=== PATIENT | male | born 1970 | race African-American/Black ===

== ENCOUNTER 2020-10-25 11:26 | Inpatient (IN) | payer OTHER ==
[2020-10-25 16:36] VITALS: BMI 21.3
[2020-10-25] MEDS ORDERED: MENTHOL/PHENOL 1 EACH UD MM PRN (16:53)
[2020-10-25] MEDS ORDERED: MAGNESIUM CITRATE 300 ML BOTTLE PO PRN (16:53)
[2020-10-25] MEDS ORDERED: IBUPROFEN 400 MG TABLET (FP) PO PRN (16:53)
[2020-10-25] MEDS ORDERED: LOPERAMIDE HCL 2 MG CAPSULE PO PRN (16:53)
[2020-10-25] MEDS ORDERED: MAGNESIUM HYDROX 2400MG/30ML ORAL SUSPENSION 30 ML CUP PO PRN (16:53)
[2020-10-25] MEDS ORDERED: NICOTINE POLACRILEX 2 MG GUM BC PRN (16:53)
[2020-10-25] MEDS ORDERED: MAG HYDROX/AL HYDROX/SIMETH 30 ML UNIT-DOSE CUP PO PRN (16:53)
[2020-10-25] MEDS ORDERED: P-EPHED 60MG/TRIPROLIDI 2.5MG TABLET PO PRN (16:53)
[2020-10-25] MEDS ORDERED: guaiFENesin 200 MG/10 ML 10 ML UNIT-DOSE CUPS PO PRN (16:53)
[2020-10-25] MEDS ORDERED: TUBERCULIN PPD 5 TU/0.1ML VIAL ID ONE (17:59)
[2020-10-25] MEDS: hydrOXYzine PAMOATE 25 MG CAPSULE (FP) PO SCH ×2 (18:35→21:49)
[2020-10-25] MEDS: THIAMINE HCL 100 MG TABLET (FP) PO SCH (21:49)
[2020-10-25] MEDS: MELATONIN 5 MG TABLETS PO SCH (21:49)
[2020-10-25] MEDS: APIXABAN 5 MG TABLET PO SCH (21:49)
[2020-10-25] MEDS: ATORVASTATIN CA 20 MG TABLET (FP) PO SCH (21:49)
[2020-10-26] MEDS: ACETAMINOPHEN 325 MG TABLET (FP) PO PRN ×2 (07:01→13:19)
[2020-10-26] MEDS: hydrOXYzine PAMOATE 25 MG CAPSULE (FP) PO SCH ×5 (07:02→21:09)
[2020-10-26] MEDS: PRENATAL VITAMINS W/ FOLIC ACID TABLET (FP) PO SCH (09:42)
[2020-10-26] MEDS: ASPIRIN 81 MG CHEWABLE TABLETS PO SCH (09:43)
[2020-10-26] MEDS: NICOTINE 7 MG/24 HOURS TOPICAL PATCH TD SCH (09:43)
[2020-10-26] MEDS: amLODIPine BESYLATE 5 MG TABLET (FP) PO SCH (09:43)
[2020-10-26] MEDS: APIXABAN 5 MG TABLET PO SCH ×2 (09:43→21:09)
[2020-10-26] MEDS ORDERED: FLU VACCINE (FLULAVAL) PF 60 MCG/0.5 ML SYRINGE 2020-2021 IM ONE (12:00)
[2020-10-26 12:36] LABS: POTASSIUM 3.7 mmol/L (3.5-5.1)
[2020-10-26 12:41] LABS: HEMATOCRIT 39.9 % (35.4-49); HEMOGLOBIN 13.2 GM/dL (11.7-16.9); MCH 29.8 pg (25.7-33.7); MCHC 33.2 g/dl (32.0-35.9); MEAN CELL VOLUME 89.7 fl (80-96); MEAN PLT VOLUME 10.5 fl (7.5-11.1); PLATELET COUNT 128 K/MM3 (134-434); RBC 4.45 M/mm3 (4.00-5.60); RDW 14.4 % (11.9-15.9); WHITE BLOOD COUNT 6.2 K/mm3 (4.0-10.0)
[2020-10-26 12:42] LABS: ALBUMIN 3.1 g/dl (3.4-5.0)
[2020-10-26 12:43] LABS: BLOOD UREA NITROGEN 11.7 mg/dL (7-18)
[2020-10-26 12:46] LABS: CREATININE 1.3 mg/dL (0.55-1.3)
[2020-10-26 12:47] LABS: BILIRUBIN,TOTAL 0.8 mg/dL (0.2-1); TOT PROT 6.7 g/dl (6.4-8.2)
[2020-10-26] MEDS: MELATONIN 5 MG TABLETS PO SCH (21:09)
[2020-10-26] MEDS: ATORVASTATIN CA 20 MG TABLET (FP) PO SCH (21:09)
[2020-10-26] MEDS: THIAMINE HCL 100 MG TABLET (FP) PO SCH (21:09)
[2020-10-27] MEDS: ACETAMINOPHEN 325 MG TABLET (FP) PO PRN (06:46)
[2020-10-27] MEDS: hydrOXYzine PAMOATE 25 MG CAPSULE (FP) PO SCH ×5 (06:47→21:10)
[2020-10-27] MEDS: PRENATAL VITAMINS W/ FOLIC ACID TABLET (FP) PO SCH (10:28)
[2020-10-27] MEDS: APIXABAN 5 MG TABLET PO SCH ×2 (10:29→21:12)
[2020-10-27] MEDS: amLODIPine BESYLATE 5 MG TABLET (FP) PO SCH (10:29)
[2020-10-27] MEDS: ASPIRIN 81 MG CHEWABLE TABLETS PO SCH (10:29)
[2020-10-27] MEDS: NICOTINE 7 MG/24 HOURS TOPICAL PATCH TD SCH (10:29)
[2020-10-27 16:41] LABS: URINE APPEARANCE CLEAR; URINE BILIRUBIN NEGATIVE (NEGATIVE); URINE COLOR YELLOW; URINE GLUCOSE (UA) NEGATIVE (NEGATIVE); URINE KETONE NEGATIVE (NEGATIVE); URINE LEUK ESTERASE NEGATIVE (NEGATIVE); URINE NITRITE NEGATIVE (NEGATIVE); URINE PROTEIN NEGATIVE (NEGATIVE); URINE UROBILINOGEN 0.2 mg/dL (0.2-1.0)
[2020-10-27] MEDS: THIAMINE HCL 100 MG TABLET (FP) PO SCH (21:10)
[2020-10-27] MEDS: MELATONIN 5 MG TABLETS PO SCH (21:10)
[2020-10-27] MEDS: ATORVASTATIN CA 20 MG TABLET (FP) PO SCH (21:10)
[2020-10-28] MEDS ORDERED: MASKS NR ONE (06:15)
[2020-10-28] MEDS: ACETAMINOPHEN 325 MG TABLET (FP) PO PRN ×2 (06:16→10:28)
[2020-10-28] MEDS: hydrOXYzine PAMOATE 25 MG CAPSULE (FP) PO SCH ×5 (06:16→22:20)
[2020-10-28 09:15] VITALS: TEMP 97.7
[2020-10-28] MEDS: APIXABAN 5 MG TABLET PO SCH ×2 (10:26→22:21)
[2020-10-28] MEDS: ASPIRIN 81 MG CHEWABLE TABLETS PO SCH (10:26)
[2020-10-28] MEDS: PRENATAL VITAMINS W/ FOLIC ACID TABLET (FP) PO SCH (10:26)
[2020-10-28] MEDS: amLODIPine BESYLATE 5 MG TABLET (FP) PO SCH (10:26)
[2020-10-28] MEDS: NICOTINE 7 MG/24 HOURS TOPICAL PATCH TD SCH (10:27)
[2020-10-28 21:01] VITALS: BP 143/85; PULSE 67
[2020-10-28] MEDS ORDERED: NITROGLYCERIN SUBLINGUAL 1/150 0.4 MG TAB SL ONE (21:16)
[2020-10-28] MEDS ORDERED: NITROGLYCERIN SUBLINGUAL 1/150 0.4 MG TAB ONE (21:24)
[2020-10-28] MEDS: MELATONIN 5 MG TABLETS PO SCH (22:21)
[2020-10-28] MEDS: THIAMINE HCL 100 MG TABLET (FP) PO SCH (22:21)
[2020-10-28] MEDS: ATORVASTATIN CA 20 MG TABLET (FP) PO SCH (22:21)
== END 2020-10-28 21:55 | disposition short-term general hospital (02) | DRG 772 ==
LOC: YASAS 11:26 → Y5N 16:42
PROVIDERS: ADMIT Allergy & Immunology; ATTEND Allergy & Immunology
PROC: HZ42ZZZ Group Counseling for Substance Abuse Treatment, Cognitive-Behavioral (ICD-10-PCS; principal; 2020-10-25)
DX: F10.20 Alcohol dependence, uncomplicated (principal); F14.20 Cocaine dependence, uncomplicated; F43.10 Post-traumatic stress disorder, unspecified; I10 Essential (primary) hypertension; E78.5 Hyperlipidemia, unspecified; M54.5 Low back pain; G89.29 Other chronic pain; R07.9 Chest pain, unspecified; Z86.73 Personal history of transient ischemic attack (TIA), and cerebral infarction without residual deficits; Z86.718 Personal history of other venous thrombosis and embolism; Z79.01 Long term (current) use of anticoagulants; Z79.82 Long term (current) use of aspirin
CPT/HCPCS: 36415; 80053; 81003; 85027; 86780; 93005; 93010; C9803; G0008; Q2036; U0003

== ENCOUNTER 2020-10-28 22:12 | Inpatient (IN) | payer OTHER ==
[2020-10-28] MEDS ORDERED: ACETAMINOPHEN 1000 MG/100 ML VIAL (NON FORMULARY) IVPB ONE (22:54)
[2020-10-28] MEDS ORDERED: SODIUM CHLORIDE 0.9% 500 ML INFUS.BAG IV ONE (22:56)
[2020-10-28] MEDS ORDERED: ACETAMINOPHEN INJECTION 100 ML IVPB ONE (23:00)
[2020-10-28 23:25] LABS: EOS % 2.9 % (0-4.5); HEMATOCRIT 41.9 % (35.4-49); HEMOGLOBIN 13.9 GM/dL (11.7-16.9); LYMPH % 26.9 % (8-40); MCH 29.6 pg (25.7-33.7); MCHC 33.1 g/dl (32.0-35.9); MEAN CELL VOLUME 89.2 fl (80-96); MEAN PLT VOLUME 9.5 fl (7.5-11.1); MONO % 25.7 % (3.8-10.2); NEUT % 43.5 % (42.8-82.8); PLATELET COUNT 108 K/MM3 (134-434); RDW 14.2 % (11.9-15.9); WHITE BLOOD COUNT 5.8 K/mm3 (4.0-10.0)
[2020-10-29 00:09] LABS: POTASSIUM 3.9 mmol/L (3.5-5.1)
[2020-10-29 00:11] LABS: CALCIUM 7.6 mg/dL (8.5-10.1)
[2020-10-29 00:12] LABS: ALBUMIN 2.7 g/dl (3.4-5.0); BLOOD UREA NITROGEN 15.3 mg/dL (7-18)
[2020-10-29 00:15] LABS: BILIRUBIN,TOTAL 0.2 mg/dL (0.2-1)
[2020-10-29 00:17] LABS: TOT PROT 6.5 g/dl (6.4-8.2)
[2020-10-29] MEDS ORDERED: ACETAMINOPHEN 325 MG TABLET (FP) PO PRN (01:43)
[2020-10-29 02:19] LABS: SMUDGE CELLS 10
[2020-10-29 02:20] LABS: ANISOCYTOSIS 1+; MACROCYTOSIS 1+; PLATELET ESTIMATE DECREASED
[2020-10-29] MEDS ORDERED: LORATADINE 10 MG TABLET PO ONE (03:52)
[2020-10-29] MEDS ORDERED: FOLIC ACID INJECTION - 1 MG, THIAMINE HCL 100 MG, MULTIVIT INJECTION ADULT 10 ML in SOD... IVPB ONE (04:00)
[2020-10-29 04:43] VITALS: BMI 28.2
[2020-10-29] MEDS ORDERED: PNEUMOC 13-VAL CONJ-DIP CRM/PF 0.5 ML DISP.SYRIN IM ONE (04:43)
[2020-10-29] MEDS ORDERED: PNEUMOCOCCAL 23 VACCINE 0.5 ML VIAL IM ONE (05:30)
[2020-10-29 07:46] LABS: BASO % 1.3 % (0-2.0); HEMATOCRIT 39.8 % (35.4-49); HEMOGLOBIN 13.3 GM/dL (11.7-16.9); LYMPH % 26.5 % (8-40); MCH 29.6 pg (25.7-33.7); MCHC 33.5 g/dl (32.0-35.9); MEAN CELL VOLUME 88.2 fl (80-96); MEAN PLT VOLUME 10.1 fl (7.5-11.1); MONO % 26.9 % (3.8-10.2); NEUT % 41.3 % (42.8-82.8); PLATELET COUNT 110 K/MM3 (134-434); RBC 4.51 M/mm3 (4.00-5.60); WHITE BLOOD COUNT 5.3 K/mm3 (4.0-10.0)
[2020-10-29 08:09] LABS: POTASSIUM 4.1 mmol/L (3.5-5.1)
[2020-10-29 08:23] LABS: ALBUMIN 2.8 g/dl (3.4-5.0)
[2020-10-29 08:24] LABS: BLOOD UREA NITROGEN 11.3 mg/dL (7-18); MAGNESIUM 1.9 mg/dL (1.8-2.4)
[2020-10-29 08:28] LABS: PHOSPHOROUS 2.9 mg/dL (2.5-4.9)
[2020-10-29 08:29] LABS: BILIRUBIN,TOTAL 0.4 mg/dL (0.2-1); TOT PROT 6.6 g/dl (6.4-8.2)
[2020-10-29] MEDS: MULTIVITAMINS (DAILY MVI) TABLET (FP) PO SCH (09:35)
[2020-10-29] MEDS: NICOTINE 14 MG/24 HOURS TOPICAL PATCH TD SCH ×2 (09:35→09:44)
[2020-10-29] MEDS: THIAMINE HCL 100 MG TABLET (FP) PO SCH (09:35)
[2020-10-29] MEDS: APIXABAN 5 MG TABLET PO SCH ×2 (09:35→21:56)
[2020-10-29] MEDS: FOLIC ACID 1 MG TABLET (FP) PO SCH (09:35)
[2020-10-29] MEDS ORDERED: HYDROCHLOROTHIAZIDE 12.5 MG CAPSULE (FP) PO SCH (10:00)
[2020-10-29 10:50] LABS: ANISOCYTOSIS 0; MACROCYTOSIS 0; PLATELET ESTIMATE DECREASED
[2020-10-29] MEDS: amLODIPine BESYLATE 2.5 MG TABLET (FP) PO SCH (13:00)
[2020-10-29] MEDS ORDERED: LORazepam 1 MG TABLET PO PRN (17:50)
[2020-10-29] MEDS: LISINOPRIL 20 MG TABLET PO SCH (21:56)
[2020-10-29] MEDS: ATORVASTATIN CA 80 MG TABLET (FP) PO SCH (21:56)
[2020-10-30 08:03] LABS: EOS % 2.5 % (0-4.5); HEMATOCRIT 40.5 % (35.4-49); HEMOGLOBIN 13.4 GM/dL (11.7-16.9); LYMPH % 25.6 % (8-40); MCH 29.2 pg (25.7-33.7); MCHC 33.1 g/dl (32.0-35.9); MEAN CELL VOLUME 88.2 fl (80-96); MONO % 22.9 % (3.8-10.2); PLATELET COUNT 113 K/MM3 (134-434); RBC 4.59 M/mm3 (4.00-5.60); RDW 13.7 % (11.9-15.9); WHITE BLOOD COUNT 6.7 K/mm3 (4.0-10.0)
[2020-10-30 08:25] LABS: POTASSIUM 3.6 mmol/L (3.5-5.1)
[2020-10-30 08:33] LABS: ALBUMIN 2.9 g/dl (3.4-5.0); BILIRUBIN,TOTAL 0.3 mg/dL (0.2-1); BLOOD UREA NITROGEN 12.2 mg/dL (7-18); MAGNESIUM 1.7 mg/dL (1.8-2.4)
[2020-10-30] MEDS: APIXABAN 5 MG TABLET PO SCH ×2 (09:32→21:39)
[2020-10-30] MEDS: FOLIC ACID 1 MG TABLET (FP) PO SCH (09:33)
[2020-10-30] MEDS: MULTIVITAMINS (DAILY MVI) TABLET (FP) PO SCH (09:33)
[2020-10-30] MEDS: NICOTINE 14 MG/24 HOURS TOPICAL PATCH TD SCH (09:35)
[2020-10-30] MEDS: THIAMINE HCL 100 MG TABLET (FP) PO SCH (09:35)
[2020-10-30] MEDS: amLODIPine BESYLATE 2.5 MG TABLET (FP) PO SCH (09:40)
[2020-10-30] MEDS ORDERED: ASPIRIN 81 MG CHEWABLE TABLETS PO SCH (10:00)
[2020-10-30 10:33] LABS: PLATELET ESTIMATE NORMAL
[2020-10-30] MEDS ORDERED: MAGNESIUM OXIDE 400 MG TABLET (FP) PO ONE (15:37)
[2020-10-30] MEDS: ATORVASTATIN CA 80 MG TABLET (FP) PO SCH (21:37)
[2020-10-30] MEDS: LISINOPRIL 20 MG TABLET PO SCH (21:37)
[2020-10-31 07:34] LABS: EOS % 5.1 % (0-4.5); HEMATOCRIT 39.7 % (35.4-49); HEMOGLOBIN 13.2 GM/dL (11.7-16.9); LYMPH % 37.2 % (8-40); MCH 29.5 pg (25.7-33.7); MCHC 33.4 g/dl (32.0-35.9); MEAN CELL VOLUME 88.3 fl (80-96); MEAN PLT VOLUME 9.7 fl (7.5-11.1); MONO % 25.3 % (3.8-10.2); NEUT % 31.4 % (42.8-82.8); PLATELET COUNT 125 K/MM3 (134-434); RBC 4.49 M/mm3 (4.00-5.60); RDW 13.6 % (11.9-15.9); WHITE BLOOD COUNT 5.9 K/mm3 (4.0-10.0)
[2020-10-31 07:41] LABS: POTASSIUM 3.8 mmol/L (3.5-5.1)
[2020-10-31 07:42] LABS: CALCIUM 8.1 mg/dL (8.5-10.1)
[2020-10-31 07:44] LABS: ALBUMIN 2.7 g/dl (3.4-5.0); BLOOD UREA NITROGEN 14.6 mg/dL (7-18); MAGNESIUM 1.9 mg/dL (1.8-2.4)
[2020-10-31 07:47] LABS: CREATININE 1.1 mg/dL (0.55-1.3)
[2020-10-31 07:48] LABS: BILIRUBIN,TOTAL 0.3 mg/dL (0.2-1); TOT PROT 6.7 g/dl (6.4-8.2)
[2020-10-31] MEDS: MULTIVITAMINS (DAILY MVI) TABLET (FP) PO SCH (09:01)
[2020-10-31] MEDS: FOLIC ACID 1 MG TABLET (FP) PO SCH (09:02)
[2020-10-31] MEDS: THIAMINE HCL 100 MG TABLET (FP) PO SCH (09:02)
[2020-10-31] MEDS: APIXABAN 5 MG TABLET PO SCH (09:02)
[2020-10-31] MEDS: amLODIPine BESYLATE 2.5 MG TABLET (FP) PO SCH (09:02)
[2020-10-31 09:57] LABS: ANISOCYTOSIS 0; MACROCYTOSIS 0; PLATELET ESTIMATE DECREASED
[2020-10-31] MEDS: NICOTINE 14 MG/24 HOURS TOPICAL PATCH TD SCH (10:00)
[2020-10-31 15:29] VITALS: BP 121/69; PULSE 55; TEMP 98
[2020-11-01] MEDS ORDERED: LORazepam 0.5 MG TABLET PO PRN
== END 2020-10-31 16:27 | disposition home or self-care (01) | DRG 774 ==
LOC: JER 22:12 → UNDOADMIN 10-29 00:38 → OBSVTOIN 10-29 00:38 → JERBED 10-29 00:38 → INTOOBSV 10-29 00:38 → J4W 10-29 04:05 → JERBED 10-29 04:05 → J4W 10-30 16:37
PROVIDERS: ADMIT Internal Medicine; ATTEND Nurse Practitioner Family
PROC: HZ2ZZZZ Detoxification Services for Substance Abuse Treatment (ICD-10-PCS; 2020-10-28)
PROC: XW13325 Transfusion of Convalescent Plasma (Nonautologous) into Peripheral Vein, Percutaneous Approach, New Technology Group 5 (ICD-10-PCS; principal; 2020-10-29)
DX: F14.288 Cocaine dependence with other cocaine-induced disorder (principal); I10 Essential (primary) hypertension; F10.239 Alcohol dependence with withdrawal, unspecified; F14.20 Cocaine dependence, uncomplicated; I69.354 Hemiplegia and hemiparesis following cerebral infarction affecting left non-dominant side; F43.10 Post-traumatic stress disorder, unspecified; I25.118 Atherosclerotic heart disease of native coronary artery with other forms of angina pectoris; I24.8 Other forms of acute ischemic heart disease; R51.9 Headache, unspecified; F17.210 Nicotine dependence, cigarettes, uncomplicated; M54.5 Low back pain; R07.89 Other chest pain; U07.1 COVID-19; Z86.718 Personal history of other venous thrombosis and embolism; Z91.14 Patient's other noncompliance with medication regimen; Z59.0 Homelessness
CPT/HCPCS: 36415; 36430; 70450-TC; 71045-TC-FY; 80053; 80061; 82728; 83615; 83721; 83735; 84100; 84484; 85025; 85379; 86140; 86850; 86900; 86901; 93005; 93010; 93306-TC; 99285-25; J0131; P9017

== ENCOUNTER 2021-06-28 21:20 | Inpatient (IN) | payer OTHER ==
[2021-06-29] MEDS ORDERED: MAGNESIUM CITRATE 300 ML BOTTLE PO PRN (03:20)
[2021-06-29] MEDS ORDERED: P-EPHED 60MG/TRIPROLIDI 2.5MG TABLET PO PRN (03:20)
[2021-06-29] MEDS ORDERED: NALOXONE HCL 0.4 MG/ML VIAL IM PRN (03:20)
[2021-06-29] MEDS ORDERED: MAG HYDROX/AL HYDROX/SIMETH 30 ML UNIT-DOSE CUP PO PRN (03:20)
[2021-06-29] MEDS ORDERED: MAGNESIUM HYDROX 2400MG/30ML ORAL SUSPENSION 30 ML CUP PO PRN (03:20)
[2021-06-29] MEDS ORDERED: guaiFENesin 200 MG/10 ML 10 ML UNIT-DOSE CUPS PO PRN (03:20)
[2021-06-29] MEDS ORDERED: NALOXONE (NARCAN) HCL 4 MG/0.1 ML SPRAY NS PRN (03:20)
[2021-06-29] MEDS ORDERED: LOPERAMIDE HCL 2 MG CAPSULE PO PRN (03:20)
[2021-06-29] MEDS ORDERED: IBUPROFEN 400 MG TABLET (FP) PO PRN ×2 (03:20→18:52)
[2021-06-29] MEDS: AMOX TR/POT CLAV 875MG/125MG TABLETS (FP) PO SCH ×2 (07:45→17:37)
[2021-06-29] MEDS: PRENATAL VITAMINS W/ FOLIC ACID TABLET (FP) PO SCH (09:47)
[2021-06-29] MEDS: NICOTINE 14 MG/24 HOURS TOPICAL PATCH TD SCH (09:47)
[2021-06-29] MEDS ORDERED: BACITRACIN 15 GM TUBE TOPICAL OINTMENT TP SCH (10:00)
[2021-06-29 14:32] LABS: HEMATOCRIT 38.8 % (35.4-49); HEMOGLOBIN 13.1 GM/dL (11.7-16.9); MCH 29.5 pg (25.7-33.7); MCHC 33.7 g/dl (32.0-35.9); MEAN CELL VOLUME 87.6 fl (80-96); MEAN PLT VOLUME 8.6 fl (7.5-11.1); PLATELET COUNT 174 10^3/uL (134-434); RBC 4.43 M/mm3 (4.00-5.60); RDW 14.9 % (11.9-15.9); WHITE BLOOD COUNT 8.4 K/mm3 (4.0-10.0)
[2021-06-29] MEDS ORDERED: PT OWN MED DRAWER 7, Y5N ONE (16:48)
[2021-06-29] MEDS ORDERED: BACITRACIN 0.9 GM PACKET ONE (19:09)
[2021-06-29] MEDS: hydrOXYzine PAMOATE 25 MG CAPSULE (FP) PO PRN (20:51)
[2021-06-29] MEDS: METHOCARBAMOL 500 MG TABLET PO PRN (20:51)
[2021-06-29] MEDS: THIAMINE HCL 100 MG TABLET (FP) PO SCH (21:41)
[2021-06-29] MEDS: MELATONIN 5 MG TABLETS PO SCH (21:41)
[2021-06-29 23:05] LABS: BLOOD UREA NITROGEN 17.2 mg/dL (7-18)
[2021-06-29 23:06] LABS: BILIRUBIN,TOTAL 0.2 mg/dL (0.2-1); CALCIUM 8.5 mg/dL (8.5-10.1); CREATININE 1.3 mg/dL (0.55-1.3)
[2021-06-30 01:19] LABS: URINE APPEARANCE CLEAR; URINE COLOR YELLOW
[2021-06-30 01:20] LABS: URINE BILIRUBIN NEGATIVE (NEGATIVE); URINE GLUCOSE (UA) NEGATIVE (NEGATIVE); URINE KETONE NEGATIVE (NEGATIVE)
[2021-06-30 01:21] LABS: URINE LEUK ESTERASE NEGATIVE (NEGATIVE); URINE NITRITE NEGATIVE (NEGATIVE); URINE PROTEIN NEGATIVE (NEGATIVE); URINE UROBILINOGEN 0.2 mg/dL (0.2-1.0)
[2021-06-30] MEDS: ACETAMINOPHEN 325 MG TABLET (FP) PO PRN (06:31)
[2021-06-30] MEDS: AMOX TR/POT CLAV 875MG/125MG TABLETS (FP) PO SCH ×2 (07:05→17:30)
[2021-06-30] MEDS ORDERED: PT OWN MED DRAWER 7, Y5N ONE ×2 (10:38→17:13)
[2021-06-30] MEDS: DIVALPROEX SODIUM 500 MG TABLET E.C. PO SCH ×2 (10:48→21:00)
[2021-06-30] MEDS: ARIPiprazole 10 MG TABLET PO SCH (10:48)
[2021-06-30] MEDS: PRENATAL VITAMINS W/ FOLIC ACID TABLET (FP) PO SCH (10:48)
[2021-06-30] MEDS: NICOTINE 14 MG/24 HOURS TOPICAL PATCH TD SCH (10:49)
[2021-06-30] MEDS: BACITRACIN 0.9 GM PACKET TP SCH (10:49)
[2021-06-30] MEDS: LISINOPRIL 10 MG TABLET PO SCH (11:36)
[2021-06-30] MEDS: METHOCARBAMOL 500 MG TABLET PO PRN ×2 (11:52→21:00)
[2021-06-30 15:48] LABS: SYPHILIS W/ RPR CONF REACTIVE (NONREACTIVE)
[2021-06-30] MEDS: IBUPROFEN 600 MG TABLET (FP) PO PRN (17:30)
[2021-06-30] MEDS: THIAMINE HCL 100 MG TABLET (FP) PO SCH (21:00)
[2021-06-30] MEDS: MELATONIN 5 MG TABLETS PO SCH (21:01)
[2021-06-30] MEDS: MIRTAZAPINE 15 MG TABLET (FP) PO SCH (21:01)
[2021-07-01] MEDS: AMOX TR/POT CLAV 875MG/125MG TABLETS (FP) PO SCH ×3 (07:51→18:04)
[2021-07-01] MEDS: ACETAMINOPHEN 325 MG TABLET (FP) PO PRN (07:51)
[2021-07-01] MEDS ORDERED: cloNIDine HCL 0.1 MG TABLET PO ONE ×2 (08:00→13:15)
[2021-07-01] MEDS ORDERED: PT OWN MED DRAWER 7, Y5N ONE (08:40)
[2021-07-01] MEDS: NICOTINE 14 MG/24 HOURS TOPICAL PATCH TD SCH (10:28)
[2021-07-01] MEDS: METHOCARBAMOL 500 MG TABLET PO PRN ×2 (10:28→13:30)
[2021-07-01] MEDS: DIVALPROEX SODIUM 500 MG TABLET E.C. PO SCH ×2 (10:28→22:12)
[2021-07-01] MEDS: LISINOPRIL 10 MG TABLET PO SCH (10:28)
[2021-07-01] MEDS: BACITRACIN 0.9 GM PACKET TP SCH (10:28)
[2021-07-01] MEDS: PRENATAL VITAMINS W/ FOLIC ACID TABLET (FP) PO SCH (10:28)
[2021-07-01] MEDS: ARIPiprazole 10 MG TABLET PO SCH (10:28)
[2021-07-01] MEDS: LISINOPRIL 20 MG TABLET PO SCH (13:30)
[2021-07-01] MEDS: IBUPROFEN 600 MG TABLET (FP) PO PRN (18:02)
[2021-07-01] MEDS: DOXYCYCLINE HYCLATE 100 MG TABLET PO SCH (18:04)
[2021-07-01] MEDS: MELATONIN 5 MG TABLETS PO SCH (22:12)
[2021-07-01] MEDS: MIRTAZAPINE 15 MG TABLET (FP) PO SCH (22:12)
[2021-07-01] MEDS: THIAMINE HCL 100 MG TABLET (FP) PO SCH (22:12)
[2021-07-02] MEDS: AMOX TR/POT CLAV 875MG/125MG TABLETS (FP) PO SCH ×2 (07:30→16:59)
[2021-07-02] MEDS ORDERED: PT OWN MED DRAWER 7, Y5N ONE ×2 (08:40→16:57)
[2021-07-02] MEDS: BACITRACIN 0.9 GM PACKET TP SCH (09:35)
[2021-07-02] MEDS: DIVALPROEX SODIUM 500 MG TABLET E.C. PO SCH ×2 (09:35→21:50)
[2021-07-02] MEDS: ARIPiprazole 10 MG TABLET PO SCH (09:35)
[2021-07-02] MEDS: DOXYCYCLINE HYCLATE 100 MG TABLET PO SCH ×2 (09:36→16:59)
[2021-07-02] MEDS: LISINOPRIL 20 MG TABLET PO SCH (09:36)
[2021-07-02] MEDS: METHOCARBAMOL 500 MG TABLET PO PRN ×2 (09:36→21:50)
[2021-07-02] MEDS: PRENATAL VITAMINS W/ FOLIC ACID TABLET (FP) PO SCH (10:04)
[2021-07-02] MEDS: NICOTINE 14 MG/24 HOURS TOPICAL PATCH TD SCH (10:04)
[2021-07-02] MEDS: IBUPROFEN 600 MG TABLET (FP) PO PRN (16:59)
[2021-07-02] MEDS: MIRTAZAPINE 15 MG TABLET (FP) PO SCH (21:50)
[2021-07-02] MEDS: THIAMINE HCL 100 MG TABLET (FP) PO SCH (21:50)
[2021-07-02] MEDS: MELATONIN 5 MG TABLETS PO SCH (21:50)
[2021-07-03] MEDS: AMOX TR/POT CLAV 875MG/125MG TABLETS (FP) PO SCH ×2 (06:59→17:33)
[2021-07-03] MEDS ORDERED: ARIPiprazole 5 MG TABLET ONE (08:32)
[2021-07-03] MEDS: DOXYCYCLINE HYCLATE 100 MG TABLET PO SCH ×2 (09:38→17:33)
[2021-07-03] MEDS: DIVALPROEX SODIUM 500 MG TABLET E.C. PO SCH ×2 (09:38→21:23)
[2021-07-03] MEDS: NICOTINE 14 MG/24 HOURS TOPICAL PATCH TD SCH (09:38)
[2021-07-03] MEDS: LISINOPRIL 20 MG TABLET PO SCH (09:38)
[2021-07-03] MEDS: BACITRACIN 0.9 GM PACKET TP SCH (09:38)
[2021-07-03] MEDS: PRENATAL VITAMINS W/ FOLIC ACID TABLET (FP) PO SCH (09:38)
[2021-07-03] MEDS: ARIPiprazole 10 MG TABLET PO SCH (09:39)
[2021-07-03] MEDS: ACETAMINOPHEN 325 MG TABLET (FP) PO PRN (09:40)
[2021-07-03] MEDS ORDERED: PT OWN MED DRAWER 7, Y5N ONE (16:44)
[2021-07-03] MEDS: IBUPROFEN 600 MG TABLET (FP) PO PRN (21:10)
[2021-07-03] MEDS: MIRTAZAPINE 15 MG TABLET (FP) PO SCH (21:23)
[2021-07-03] MEDS: MELATONIN 5 MG TABLETS PO SCH (21:23)
[2021-07-03] MEDS: THIAMINE HCL 100 MG TABLET (FP) PO SCH (21:23)
[2021-07-03] MEDS: hydrOXYzine PAMOATE 25 MG CAPSULE (FP) PO PRN (21:25)
[2021-07-03] MEDS ORDERED: amLODIPine BESYLATE 5 MG TABLET (FP) PO ONE (23:10)
[2021-07-04] MEDS: LISINOPRIL 20 MG TABLET PO SCH (06:26)
[2021-07-04] MEDS ORDERED: PT OWN MED DRAWER 7, Y5N ONE (07:07)
[2021-07-04] MEDS ORDERED: ARIPiprazole 5 MG TABLET ONE (08:39)
[2021-07-04] MEDS: BACITRACIN 0.9 GM PACKET TP SCH (09:30)
[2021-07-04] MEDS: amLODIPine BESYLATE 5 MG TABLET (FP) PO SCH (09:31)
[2021-07-04] MEDS: HYDROCHLOROTHIAZIDE 12.5 MG CAPSULE (FP) PO SCH (09:31)
[2021-07-04] MEDS: DIVALPROEX SODIUM 500 MG TABLET E.C. PO SCH ×2 (09:31→21:15)
[2021-07-04] MEDS: DOXYCYCLINE HYCLATE 100 MG TABLET PO SCH ×2 (09:31→17:48)
[2021-07-04] MEDS: ARIPiprazole 10 MG TABLET PO SCH (09:31)
[2021-07-04] MEDS: PRENATAL VITAMINS W/ FOLIC ACID TABLET (FP) PO SCH (09:31)
[2021-07-04] MEDS: NICOTINE 14 MG/24 HOURS TOPICAL PATCH TD SCH (09:32)
[2021-07-04] MEDS: IBUPROFEN 600 MG TABLET (FP) PO PRN (20:02)
[2021-07-04] MEDS: METHOCARBAMOL 500 MG TABLET PO PRN (21:15)
[2021-07-04] MEDS: THIAMINE HCL 100 MG TABLET (FP) PO SCH (21:15)
[2021-07-04] MEDS: MIRTAZAPINE 15 MG TABLET (FP) PO SCH (21:15)
[2021-07-04] MEDS: MELATONIN 5 MG TABLETS PO SCH (21:16)
[2021-07-05] MEDS: IBUPROFEN 600 MG TABLET (FP) PO PRN (06:49)
[2021-07-05] MEDS: LISINOPRIL 20 MG TABLET PO SCH (06:49)
[2021-07-05] MEDS: ARIPiprazole 10 MG TABLET PO SCH (10:15)
[2021-07-05] MEDS: DIVALPROEX SODIUM 500 MG TABLET E.C. PO SCH ×2 (10:15→21:16)
[2021-07-05] MEDS: HYDROCHLOROTHIAZIDE 12.5 MG CAPSULE (FP) PO SCH (10:15)
[2021-07-05] MEDS: BACITRACIN 0.9 GM PACKET TP SCH ×2 (10:16→21:16)
[2021-07-05] MEDS: DOXYCYCLINE HYCLATE 100 MG TABLET PO SCH ×2 (10:16→18:15)
[2021-07-05] MEDS: amLODIPine BESYLATE 5 MG TABLET (FP) PO SCH (10:16)
[2021-07-05] MEDS: PRENATAL VITAMINS W/ FOLIC ACID TABLET (FP) PO SCH (10:17)
[2021-07-05] MEDS: AMMONIUM LACTATE 12% LOTION 225 GM BOTTLE TP PRN (10:17)
[2021-07-05] MEDS: NICOTINE 14 MG/24 HOURS TOPICAL PATCH TD SCH (10:17)
[2021-07-05] MEDS: NICOTINE 10 MG CARTRIDGE (INHALER) IH PRN (21:12)
[2021-07-05] MEDS: MELATONIN 5 MG TABLETS PO SCH (21:15)
[2021-07-05] MEDS: THIAMINE HCL 100 MG TABLET (FP) PO SCH (21:15)
[2021-07-05] MEDS: MIRTAZAPINE 15 MG TABLET (FP) PO SCH (21:16)
[2021-07-06] MEDS: LISINOPRIL 20 MG TABLET PO SCH (06:32)
[2021-07-06] MEDS: NICOTINE 10 MG CARTRIDGE (INHALER) IH PRN (06:32)
[2021-07-06] MEDS: DIVALPROEX SODIUM 500 MG TABLET E.C. PO SCH ×2 (09:31→21:31)
[2021-07-06] MEDS: BACITRACIN 0.9 GM PACKET TP SCH ×2 (09:31→21:31)
[2021-07-06] MEDS: ARIPiprazole 10 MG TABLET PO SCH (09:31)
[2021-07-06] MEDS: DOXYCYCLINE HYCLATE 100 MG TABLET PO SCH ×2 (09:31→18:10)
[2021-07-06] MEDS: PRENATAL VITAMINS W/ FOLIC ACID TABLET (FP) PO SCH (09:31)
[2021-07-06] MEDS: NICOTINE 14 MG/24 HOURS TOPICAL PATCH TD SCH (09:31)
[2021-07-06] MEDS: HYDROCHLOROTHIAZIDE 12.5 MG CAPSULE (FP) PO SCH (09:31)
[2021-07-06] MEDS: amLODIPine BESYLATE 5 MG TABLET (FP) PO SCH (09:31)
[2021-07-06] MEDS: MELATONIN 5 MG TABLETS PO SCH (21:31)
[2021-07-06] MEDS: THIAMINE HCL 100 MG TABLET (FP) PO SCH (21:31)
[2021-07-06] MEDS: MIRTAZAPINE 15 MG TABLET (FP) PO SCH (21:31)
[2021-07-07] MEDS: LISINOPRIL 20 MG TABLET PO SCH (06:22)
[2021-07-07] MEDS: NICOTINE 10 MG CARTRIDGE (INHALER) IH PRN ×3 (06:46→21:25)
[2021-07-07] MEDS: PRENATAL VITAMINS W/ FOLIC ACID TABLET (FP) PO SCH (09:56)
[2021-07-07] MEDS: HYDROCHLOROTHIAZIDE 12.5 MG CAPSULE (FP) PO SCH (09:56)
[2021-07-07] MEDS: NICOTINE 14 MG/24 HOURS TOPICAL PATCH TD SCH (09:57)
[2021-07-07] MEDS: DOXYCYCLINE HYCLATE 100 MG TABLET PO SCH ×2 (09:57→18:16)
[2021-07-07] MEDS: METHOCARBAMOL 500 MG TABLET PO PRN ×2 (09:57→21:25)
[2021-07-07] MEDS: DIVALPROEX SODIUM 500 MG TABLET E.C. PO SCH ×2 (09:57→21:25)
[2021-07-07] MEDS: amLODIPine BESYLATE 5 MG TABLET (FP) PO SCH (09:57)
[2021-07-07] MEDS: BACITRACIN 0.9 GM PACKET TP SCH ×2 (09:57→21:35)
[2021-07-07] MEDS: ARIPiprazole 10 MG TABLET PO SCH (09:57)
[2021-07-07] MEDS: IBUPROFEN 600 MG TABLET (FP) PO PRN (09:58)
[2021-07-07] MEDS: THIAMINE HCL 100 MG TABLET (FP) PO SCH (21:25)
[2021-07-07] MEDS: MIRTAZAPINE 15 MG TABLET (FP) PO SCH (21:25)
[2021-07-07] MEDS: hydrOXYzine PAMOATE 25 MG CAPSULE (FP) PO PRN (21:26)
[2021-07-07] MEDS: MELATONIN 5 MG TABLETS PO SCH (21:31)
[2021-07-08] MEDS: LISINOPRIL 20 MG TABLET PO SCH (06:27)
[2021-07-08] MEDS: DOXYCYCLINE HYCLATE 100 MG TABLET PO SCH ×2 (10:11→17:42)
[2021-07-08] MEDS: NICOTINE 14 MG/24 HOURS TOPICAL PATCH TD SCH (10:11)
[2021-07-08] MEDS: PRENATAL VITAMINS W/ FOLIC ACID TABLET (FP) PO SCH (10:11)
[2021-07-08] MEDS: HYDROCHLOROTHIAZIDE 12.5 MG CAPSULE (FP) PO SCH (10:11)
[2021-07-08] MEDS: amLODIPine BESYLATE 5 MG TABLET (FP) PO SCH (10:11)
[2021-07-08] MEDS: DIVALPROEX SODIUM 500 MG TABLET E.C. PO SCH ×2 (10:11→21:41)
[2021-07-08] MEDS: BACITRACIN 0.9 GM PACKET TP SCH ×2 (10:12→21:41)
[2021-07-08] MEDS: ARIPiprazole 10 MG TABLET PO SCH (10:12)
[2021-07-08] MEDS: AMMONIUM LACTATE 12% LOTION 225 GM BOTTLE TP PRN (10:13)
[2021-07-08] MEDS: NICOTINE 10 MG CARTRIDGE (INHALER) IH PRN (17:42)
[2021-07-08] MEDS: THIAMINE HCL 100 MG TABLET (FP) PO SCH (21:41)
[2021-07-08] MEDS: MIRTAZAPINE 15 MG TABLET (FP) PO SCH (21:41)
[2021-07-08] MEDS: MELATONIN 5 MG TABLETS PO SCH (21:42)
[2021-07-08] MEDS: METHOCARBAMOL 500 MG TABLET PO PRN (21:43)
[2021-07-09] MEDS: LISINOPRIL 20 MG TABLET PO SCH (07:01)
[2021-07-09 07:33] VITALS: TEMP 98
[2021-07-09] MEDS: ARIPiprazole 10 MG TABLET PO SCH (09:16)
[2021-07-09] MEDS: DOXYCYCLINE HYCLATE 100 MG TABLET PO SCH (09:16)
[2021-07-09] MEDS: PRENATAL VITAMINS W/ FOLIC ACID TABLET (FP) PO SCH (09:16)
[2021-07-09] MEDS: BACITRACIN 0.9 GM PACKET TP SCH (09:16)
[2021-07-09] MEDS: DIVALPROEX SODIUM 500 MG TABLET E.C. PO SCH (09:16)
[2021-07-09] MEDS: amLODIPine BESYLATE 5 MG TABLET (FP) PO SCH (09:17)
[2021-07-09] MEDS: NICOTINE 14 MG/24 HOURS TOPICAL PATCH TD SCH (09:17)
[2021-07-09] MEDS: HYDROCHLOROTHIAZIDE 12.5 MG CAPSULE (FP) PO SCH (09:17)
[2021-07-09 09:52] VITALS: BP 136/97; PULSE 78
== END 2021-07-09 15:25 | disposition home or self-care (01) | DRG 772 ==
LOC: YASAS 21:20 → Y3E 06-29 02:42
PROVIDERS: ADMIT Allergy & Immunology; ATTEND Allergy & Immunology
PROC: HZ42ZZZ Group Counseling for Substance Abuse Treatment, Cognitive-Behavioral (ICD-10-PCS; principal; 2021-06-29)
DX: F14.20 Cocaine dependence, uncomplicated (principal); F12.20 Cannabis dependence, uncomplicated; F17.210 Nicotine dependence, cigarettes, uncomplicated; F31.9 Bipolar disorder, unspecified; F19.282 Other psychoactive substance dependence with psychoactive substance-induced sleep disorder; F19.24 Other psychoactive substance dependence with psychoactive substance-induced mood disorder; F43.10 Post-traumatic stress disorder, unspecified; I25.118 Atherosclerotic heart disease of native coronary artery with other forms of angina pectoris; I10 Essential (primary) hypertension; J44.9 Chronic obstructive pulmonary disease, unspecified; E78.5 Hyperlipidemia, unspecified; A53.9 Syphilis, unspecified; Z86.73 Personal history of transient ischemic attack (TIA), and cerebral infarction without residual deficits; Z98.890 Other specified postprocedural states; Z59.00 Homelessness unspecified; Z56.0 Unemployment, unspecified; Z99.89 Dependence on other enabling machines and devices; S01.81XD Laceration without foreign body of other part of head, subsequent encounter; S82.042D Displaced comminuted fracture of left patella, subsequent encounter for closed fracture with routine healing; S82.091D Other fracture of right patella, subsequent encounter for closed fracture with routine healing; Y08.89XD Assault by other specified means, subsequent encounter
CPT/HCPCS: 36415; 80053; 81003; 85027; 86593; 86780; 86803; C9803; J0735; U0003; U0005

== ENCOUNTER 2021-10-30 18:48 | Inpatient (IN) | payer OTHER ==
[2021-10-30] MEDS ORDERED: NICOTINE POLACRILEX 2 MG GUM BC PRN (20:17)
[2021-10-30] MEDS ORDERED: P-EPHED 60MG/TRIPROLIDI 2.5MG TABLET PO PRN (20:17)
[2021-10-30] MEDS ORDERED: MAGNESIUM HYDROX 2400MG/30ML ORAL SUSPENSION 30 ML CUP PO PRN (20:17)
[2021-10-30] MEDS ORDERED: MAG HYDROX/AL HYDROX/SIMETH 30 ML UNIT-DOSE CUP PO PRN (20:17)
[2021-10-30] MEDS ORDERED: MAGNESIUM CITRATE 300 ML BOTTLE PO PRN (20:17)
[2021-10-30] MEDS ORDERED: guaiFENesin 200 MG/10 ML 10 ML UNIT-DOSE CUPS PO PRN (20:17)
[2021-10-30] MEDS ORDERED: LOPERAMIDE HCL 2 MG CAPSULE PO PRN (20:17)
[2021-10-30] MEDS ORDERED: MELATONIN 5 MG TABLETS PO PRN (20:17)
[2021-10-30] MEDS ORDERED: ACETAMINOPHEN 325 MG TABLET (FP) PO PRN (20:17)
[2021-10-30 21:54] VITALS: BMI 23.7
[2021-10-30] MEDS ORDERED: ATORVASTATIN CA 80 MG TABLET (FP) PO SCH (22:00)
[2021-10-30] MEDS ORDERED: LISINOPRIL 20 MG TABLET PO SCH (22:00)
[2021-10-30] MEDS ORDERED: THIAMINE HCL 100 MG TABLET (FP) PO SCH (22:00)
[2021-10-30] MEDS ORDERED: ONDANSETRON 4 MG TABLET PO ONE (23:35)
[2021-10-31] MEDS: APIXABAN 5 MG TABLET PO SCH ×2 (00:03→09:55)
[2021-10-31] MEDS: DIVALPROEX SODIUM 500 MG TABLET E.C. PO SCH ×2 (00:03→09:53)
[2021-10-31] MEDS: GABAPENTIN 300 MG CAPSULE PO SCH ×3 (00:03→15:22)
[2021-10-31] MEDS: FOLIC ACID 1 MG TABLET (FP) PO SCH ×2 (00:03→09:53)
[2021-10-31 07:24] VITALS: TEMP 98.8
[2021-10-31] MEDS ORDERED: BUPRENORPHINE/NALOXONE 2 MG/0.5 MG FILM PACKET SL SCH (10:00)
[2021-10-31] MEDS ORDERED: PRENATAL VITAMINS W/ FOLIC ACID TABLET (FP) PO SCH (10:00)
[2021-10-31] MEDS ORDERED: DIVALPROEX PO SCH (10:00)
[2021-10-31 10:15] LABS: HEMOGLOBIN 14.6 GM/dL (11.7-16.9); MCH 28.9 pg (25.7-33.7); MCHC 32.5 g/dl (32.0-35.9); MEAN PLT VOLUME 9.1 fl (7.5-11.1); PLATELET COUNT 166 10^3/uL (134-434); RBC 5.05 M/mm3 (4.00-5.60); RDW 14.6 % (11.9-15.9); WHITE BLOOD COUNT 12.4 K/mm3 (4.0-10.0)
[2021-10-31 10:17] LABS: EPI CELLS 8 /uL (0-25.1); HYALINE CASTS 7 /uL (0-3.1); PH,URINE 5.5 (5.0-8.0); URINE APPEARANCE CLEAR; URINE BACTERIA 1 /uL (0-1359); URINE BILIRUBIN NEGATIVE (NEGATIVE); URINE COLOR YELLOW; URINE GLUCOSE (UA) NEGATIVE (NEGATIVE); URINE KETONE TRACE (NEGATIVE); URINE LEUK ESTERASE NEGATIVE (NEGATIVE); URINE NITRITE NEGATIVE (NEGATIVE); URINE PROTEIN 1+ (NEGATIVE); URINE RBC 6 /uL (0-23.9); URINE UROBILINOGEN 0.2 mg/dL (0.2-1.0); URINE WBC 7 /uL (0-25.8)
[2021-10-31 10:18] LABS: CALCIUM 8.8 mg/dL (8.5-10.1)
[2021-10-31 10:19] LABS: ALBUMIN 2.7 g/dl (3.4-5.0); BLOOD UREA NITROGEN 18.3 mg/dL (7-18)
[2021-10-31 10:22] LABS: CREATININE 1.4 mg/dL (0.55-1.3)
[2021-10-31 10:24] LABS: BILIRUBIN,TOTAL 0.2 mg/dL (0.2-1); TOT PROT 5.8 g/dl (6.4-8.2)
[2021-10-31 11:11] VITALS: BP 101/66; PULSE 76
[2021-10-31] MEDS ORDERED: VERAPAMIL HCL 40 MG TABLET PO SCH (14:00)
[2021-10-31] MEDS ORDERED: MIRTAZAPINE 15 MG TABLET (FP) PO SCH (22:00)
== END 2021-10-31 16:30 | disposition left against medical advice (07) | DRG 772 ==
LOC: YASAS 18:48 → Y5N 20:50 → Y3W 10-31 01:56
PROVIDERS: ADMIT Allergy & Immunology; ATTEND Allergy & Immunology
PROC: HZ42ZZZ Group Counseling for Substance Abuse Treatment, Cognitive-Behavioral (ICD-10-PCS; principal; 2021-10-30)
DX: F10.20 Alcohol dependence, uncomplicated (principal); F14.20 Cocaine dependence, uncomplicated; F12.20 Cannabis dependence, uncomplicated; F17.210 Nicotine dependence, cigarettes, uncomplicated; F19.282 Other psychoactive substance dependence with psychoactive substance-induced sleep disorder; F19.280 Other psychoactive substance dependence with psychoactive substance-induced anxiety disorder; F31.9 Bipolar disorder, unspecified; F43.10 Post-traumatic stress disorder, unspecified; G40.909 Epilepsy, unspecified, not intractable, without status epilepticus; I25.10 Atherosclerotic heart disease of native coronary artery without angina pectoris; I10 Essential (primary) hypertension; J43.9 Emphysema, unspecified; Z86.718 Personal history of other venous thrombosis and embolism; Z79.01 Long term (current) use of anticoagulants; I69.834 Monoplegia of upper limb following other cerebrovascular disease affecting left non-dominant side; Z86.19 Personal history of other infectious and parasitic diseases; Z56.0 Unemployment, unspecified; Z59.00 Homelessness unspecified
CPT/HCPCS: 36415; 80053; 81003; 85027; 86593; 86780; 93005; 93010

== ENCOUNTER 2023-03-29 19:29 | Inpatient (IN) | payer OTHER ==
[2023-03-29 20:44] VITALS: BMI 24.4
[2023-03-30] MEDS ORDERED: LOPERAMIDE HCL 2 MG CAPSULE PO PRN (01:22)
[2023-03-30] MEDS ORDERED: BENZONATATE 200 MG CAPSULE PO PRN (01:22)
[2023-03-30] MEDS ORDERED: NALOXONE HCL 0.4 MG/ML VIAL IM PRN (01:22)
[2023-03-30] MEDS ORDERED: AMMONIUM LACTATE 12% LOTION 225 GM BOTTLE TP PRN (01:22)
[2023-03-30] MEDS ORDERED: BENZOCAINE/MENTHOL (CHLORASEPTIC ) LOZENGE MM PRN (01:22)
[2023-03-30] MEDS ORDERED: MAGNESIUM HYDROX 2400MG/30ML ORAL SUSPENSION 30 ML CUP PO PRN (01:22)
[2023-03-30] MEDS ORDERED: NICOTINE 10 MG CARTRIDGE (INHALER) IH PRN (01:22)
[2023-03-30] MEDS ORDERED: IBUPROFEN 400 MG TABLET (FP) PO PRN (01:22)
[2023-03-30] MEDS ORDERED: NALOXONE HCL (KLOXXADO) 8 MG SPRAY NS PRN (01:22)
[2023-03-30] MEDS ORDERED: guaiFENesin 600 MG TABLET.ER (FP) PO PRN (01:22)
[2023-03-30] MEDS ORDERED: COLLOIDAL OATMEAL 1 BAR EACH TP PRN (01:22)
[2023-03-30] MEDS ORDERED: MAG HYDROX/AL HYDROX/SIMETH 30 ML UNIT-DOSE CUP PO PRN (01:22)
[2023-03-30] MEDS ORDERED: POLYETHYLENE GLYCOL (HEALTHYLAX) 3350 17 GM PACKET PO PRN (01:22)
[2023-03-30] MEDS: hydrOXYzine PAMOATE 25 MG CAPSULE (FP) PO PRN (07:08)
[2023-03-30] MEDS ORDERED: LISINOPRIL 20 MG TABLET PO ONE (07:45)
[2023-03-30] MEDS ORDERED: TUBERCULIN PPD 5 TU/0.1ML VIAL ID ONE (07:48)
[2023-03-30] MEDS: HYDROCHLOROTHIAZIDE 12.5 MG CAPSULE (FP) PO SCH (07:49)
[2023-03-30] MEDS: PRENATAL VITAMINS W/ FOLIC ACID TABLET (FP) PO SCH (09:36)
[2023-03-30] MEDS: NICOTINE 14 MG/24 HOURS TOPICAL PATCH TD SCH (09:36)
[2023-03-30 11:26] LABS: HEMATOCRIT 38.1 % (35.4-49); HEMOGLOBIN 12.3 GM/dL (11.7-16.9); MCH 28.7 pg (25.7-33.7); MCHC 32.3 g/dl (32.0-35.9); MEAN CELL VOLUME 88.7 fl (80-96); MEAN PLT VOLUME 10.1 fl (7.5-11.1); PLATELET COUNT 139 10^3/uL (134-434); RBC 4.29 M/mm3 (4.00-5.60); RDW 14.5 % (11.9-15.9); WHITE BLOOD COUNT 5.7 K/mm3 (4.0-10.0)
[2023-03-30 11:30] LABS: URINE APPEARANCE CLEAR; URINE BILIRUBIN NEGATIVE (NEGATIVE); URINE COLOR YELLOW; URINE GLUCOSE (UA) NEGATIVE (NEGATIVE); URINE KETONE NEGATIVE (NEGATIVE); URINE LEUK ESTERASE NEGATIVE (NEGATIVE); URINE NITRITE NEGATIVE (NEGATIVE); URINE PROTEIN NEGATIVE (NEGATIVE); URINE UROBILINOGEN 0.2 mg/dL (0.2-1.0)
[2023-03-30 11:34] LABS: POTASSIUM 3.7 mmol/L (3.5-5.1)
[2023-03-30 11:44] LABS: CALCIUM 8.7 mg/dL (8.5-10.1)
[2023-03-30 11:45] LABS: ALBUMIN 2.9 g/dl (3.4-5.0); BLOOD UREA NITROGEN 20.7 mg/dL (7-18); TOT PROT 6.3 g/dl (6.4-8.2)
[2023-03-30 11:47] LABS: BILIRUBIN,TOTAL 0.4 mg/dL (0.2-1)
[2023-03-30 11:48] LABS: CREATININE 1.3 mg/dL (0.55-1.3)
[2023-03-30] MEDS: THIAMINE HCL 100 MG TABLET (FP) PO SCH (21:06)
[2023-03-30] MEDS: MELATONIN 5 MG TABLETS PO SCH (21:06)
[2023-03-31] MEDS: PRENATAL VITAMINS W/ FOLIC ACID TABLET (FP) PO SCH (09:45)
[2023-03-31] MEDS: NICOTINE POLACRILEX 2 MG GUM BUC PRN (09:45)
[2023-03-31] MEDS: IBUPROFEN 600 MG TABLET (FP) PO PRN (09:47)
[2023-03-31] MEDS: hydrOXYzine PAMOATE 25 MG CAPSULE (FP) PO PRN (09:47)
[2023-03-31] MEDS: HYDROCHLOROTHIAZIDE 12.5 MG CAPSULE (FP) PO SCH (09:47)
[2023-03-31] MEDS: NICOTINE 14 MG/24 HOURS TOPICAL PATCH TD SCH (09:48)
[2023-03-31] MEDS: ARIPiprazole 5 MG TABLET PO SCH (12:14)
[2023-03-31] MEDS: THIAMINE HCL 100 MG TABLET (FP) PO SCH (21:06)
[2023-03-31] MEDS: MELATONIN 5 MG TABLETS PO SCH (21:06)
[2023-03-31] MEDS: MIRTAZAPINE 15 MG TABLET (FP) PO SCH (21:07)
[2023-04-01] MEDS: PRENATAL VITAMINS W/ FOLIC ACID TABLET (FP) PO SCH (09:56)
[2023-04-01] MEDS: HYDROCHLOROTHIAZIDE 12.5 MG CAPSULE (FP) PO SCH (09:57)
[2023-04-01] MEDS: ARIPiprazole 5 MG TABLET PO SCH (09:57)
[2023-04-01] MEDS: IBUPROFEN 600 MG TABLET (FP) PO PRN ×2 (09:57→21:17)
[2023-04-01] MEDS: hydrOXYzine PAMOATE 25 MG CAPSULE (FP) PO PRN (09:57)
[2023-04-01] MEDS ORDERED: ARIPiprazole 5 MG TABLET PO SCH (10:00)
[2023-04-01] MEDS: NICOTINE 14 MG/24 HOURS TOPICAL PATCH TD SCH (10:19)
[2023-04-01] MEDS: MIRTAZAPINE 15 MG TABLET (FP) PO SCH (21:16)
[2023-04-01] MEDS: THIAMINE HCL 100 MG TABLET (FP) PO SCH (21:16)
[2023-04-01] MEDS: MELATONIN 5 MG TABLETS PO SCH (21:16)
[2023-04-02] MEDS: hydrOXYzine PAMOATE 25 MG CAPSULE (FP) PO PRN (05:46)
[2023-04-02] MEDS: HYDROCHLOROTHIAZIDE 12.5 MG CAPSULE (FP) PO SCH (09:44)
[2023-04-02] MEDS: ARIPiprazole 5 MG TABLET PO SCH (09:44)
[2023-04-02] MEDS: PRENATAL VITAMINS W/ FOLIC ACID TABLET (FP) PO SCH (09:44)
[2023-04-02] MEDS: IBUPROFEN 600 MG TABLET (FP) PO PRN (09:45)
[2023-04-02] MEDS: NICOTINE 14 MG/24 HOURS TOPICAL PATCH TD SCH (09:45)
[2023-04-02] MEDS ORDERED: PENICILLIN G BENZATHINE 2,400,000 UNIT/4 ML PFS IM ONE (10:35)
[2023-04-02] MEDS: GABAPENTIN 300 MG CAPSULE PO SCH ×2 (13:06→21:13)
[2023-04-02] MEDS ORDERED: cloNIDine HCL 0.1 MG TABLET PO PRN (13:48)
[2023-04-02] MEDS ORDERED: ATORVASTATIN CA 80 MG TABLET (FP) PO SCH ×2 (14:00→18:00)
[2023-04-02] MEDS: LISINOPRIL 20 MG TABLET PO SCH (15:13)
[2023-04-02] MEDS: ASPIRIN 81 MG CHEWABLE TABLETS PO SCH (15:13)
[2023-04-02] MEDS: MIRTAZAPINE 15 MG TABLET (FP) PO SCH (21:13)
[2023-04-02] MEDS: THIAMINE HCL 100 MG TABLET (FP) PO SCH (21:13)
[2023-04-02] MEDS: APIXABAN 5 MG TABLET PO SCH (21:54)
[2023-04-02] MEDS: MELATONIN 5 MG TABLETS PO SCH (21:54)
[2023-04-02] MEDS ORDERED: ATORVASTATIN CA 40 MG TABLET (FP) ONE (21:54)
[2023-04-02] MEDS: ATORVASTATIN CA 80 MG TABLET (FP) PO SCH (21:55)
[2023-04-03] MEDS: GABAPENTIN 300 MG CAPSULE PO SCH ×3 (07:14→21:10)
[2023-04-03] MEDS: LISINOPRIL 20 MG TABLET PO SCH (09:34)
[2023-04-03] MEDS: PRENATAL VITAMINS W/ FOLIC ACID TABLET (FP) PO SCH (09:34)
[2023-04-03] MEDS: ARIPiprazole 5 MG TABLET PO SCH (09:34)
[2023-04-03] MEDS: APIXABAN 5 MG TABLET PO SCH ×2 (09:34→21:10)
[2023-04-03] MEDS: NICOTINE 14 MG/24 HOURS TOPICAL PATCH TD SCH (09:34)
[2023-04-03] MEDS: ASPIRIN 81 MG CHEWABLE TABLETS PO SCH (09:34)
[2023-04-03] MEDS: ACETAMINOPHEN 325 MG TABLET (FP) PO PRN (09:36)
[2023-04-03] MEDS: NICOTINE POLACRILEX 2 MG GUM BUC PRN (19:43)
[2023-04-03] MEDS ORDERED: ATORVASTATIN CA 40 MG TABLET (FP) ONE (19:45)
[2023-04-03] MEDS: MELATONIN 5 MG TABLETS PO SCH (21:09)
[2023-04-03] MEDS: ATORVASTATIN CA 80 MG TABLET (FP) PO SCH (21:10)
[2023-04-03] MEDS: THIAMINE HCL 100 MG TABLET (FP) PO SCH (21:10)
[2023-04-03] MEDS: MIRTAZAPINE 15 MG TABLET (FP) PO SCH (21:10)
[2023-04-03] MEDS: cloNIDine HCL 0.1 MG TABLET PO PRN (21:11)
[2023-04-04] MEDS: GABAPENTIN 300 MG CAPSULE PO SCH ×3 (06:42→21:09)
[2023-04-04] MEDS: ASPIRIN 81 MG CHEWABLE TABLETS PO SCH (09:53)
[2023-04-04] MEDS: LISINOPRIL 20 MG TABLET PO SCH (09:53)
[2023-04-04] MEDS: APIXABAN 5 MG TABLET PO SCH ×2 (09:53→21:09)
[2023-04-04] MEDS: ARIPiprazole 5 MG TABLET PO SCH (09:53)
[2023-04-04] MEDS: PRENATAL VITAMINS W/ FOLIC ACID TABLET (FP) PO SCH (09:53)
[2023-04-04] MEDS: NICOTINE 14 MG/24 HOURS TOPICAL PATCH TD SCH (09:54)
[2023-04-04] MEDS: cloNIDine HCL 0.1 MG TABLET PO PRN (18:02)
[2023-04-04] MEDS ORDERED: ATORVASTATIN CA 40 MG TABLET (FP) ONE (19:25)
[2023-04-04] MEDS: MELATONIN 5 MG TABLETS PO SCH (21:09)
[2023-04-04] MEDS: MIRTAZAPINE 15 MG TABLET (FP) PO SCH (21:09)
[2023-04-04] MEDS: THIAMINE HCL 100 MG TABLET (FP) PO SCH (21:09)
[2023-04-04] MEDS: hydrOXYzine PAMOATE 25 MG CAPSULE (FP) PO PRN (21:09)
[2023-04-04] MEDS: ATORVASTATIN CA 80 MG TABLET (FP) PO SCH (21:10)
[2023-04-05] MEDS: cloNIDine HCL 0.1 MG TABLET PO PRN ×2 (06:35→21:03)
[2023-04-05] MEDS: GABAPENTIN 300 MG CAPSULE PO SCH ×3 (06:35→21:03)
[2023-04-05] MEDS: LISINOPRIL 20 MG TABLET PO SCH (09:41)
[2023-04-05] MEDS: ASPIRIN 81 MG CHEWABLE TABLETS PO SCH (09:41)
[2023-04-05] MEDS: ARIPiprazole 5 MG TABLET PO SCH (09:41)
[2023-04-05] MEDS: PRENATAL VITAMINS W/ FOLIC ACID TABLET (FP) PO SCH (09:41)
[2023-04-05] MEDS: NICOTINE 14 MG/24 HOURS TOPICAL PATCH TD SCH (09:41)
[2023-04-05] MEDS: APIXABAN 5 MG TABLET PO SCH ×2 (09:41→21:03)
[2023-04-05] MEDS: ACETAMINOPHEN 325 MG TABLET (FP) PO PRN (11:59)
[2023-04-05] MEDS ORDERED: ATORVASTATIN CA 40 MG TABLET (FP) ONE (19:04)
[2023-04-05] MEDS: MIRTAZAPINE 15 MG TABLET (FP) PO SCH (21:03)
[2023-04-05] MEDS: ATORVASTATIN CA 80 MG TABLET (FP) PO SCH (21:03)
[2023-04-05] MEDS: THIAMINE HCL 100 MG TABLET (FP) PO SCH (21:03)
[2023-04-05] MEDS: hydrOXYzine PAMOATE 25 MG CAPSULE (FP) PO PRN (21:04)
[2023-04-05] MEDS: MELATONIN 5 MG TABLETS PO SCH (21:04)
[2023-04-06] MEDS: cloNIDine HCL 0.1 MG TABLET PO PRN (06:45)
[2023-04-06] MEDS: GABAPENTIN 300 MG CAPSULE PO SCH (06:45)
[2023-04-06 07:30] VITALS: RESP 18; TEMP 97.4
[2023-04-06] MEDS: PRENATAL VITAMINS W/ FOLIC ACID TABLET (FP) PO SCH (09:28)
[2023-04-06] MEDS: ARIPiprazole 5 MG TABLET PO SCH (09:28)
[2023-04-06] MEDS: APIXABAN 5 MG TABLET PO SCH (09:28)
[2023-04-06] MEDS: NICOTINE 14 MG/24 HOURS TOPICAL PATCH TD SCH (09:28)
[2023-04-06] MEDS: LISINOPRIL 20 MG TABLET PO SCH (09:28)
[2023-04-06] MEDS: ASPIRIN 81 MG CHEWABLE TABLETS PO SCH (09:28)
[2023-04-06 10:44] VITALS: BP 136/80; PULSE 71
[2023-04-09] MEDS ORDERED: PENICILLIN G BENZATHINE 2,400,000 UNIT/4 ML PFS IM ONE (10:00)
[2023-04-16] MEDS ORDERED: PENICILLIN G BENZATHINE 2,400,000 UNIT/4 ML PFS IM ONE (10:00)
== END 2023-04-06 09:45 | disposition home or self-care (01) | DRG 772 ==
LOC: YASAS 19:29 → Y5N 03-30 01:52
PROVIDERS: ADMIT Allergy & Immunology; ATTEND Psychiatry & Neurology Pain Medicine
PROC: HZ42ZZZ Group Counseling for Substance Abuse Treatment, Cognitive-Behavioral (ICD-10-PCS; principal; 2023-03-30)
DX: F14.20 Cocaine dependence, uncomplicated (principal); F12.20 Cannabis dependence, uncomplicated; F17.210 Nicotine dependence, cigarettes, uncomplicated; F31.9 Bipolar disorder, unspecified; F39 Unspecified mood [affective] disorder; F41.9 Anxiety disorder, unspecified; G40.909 Epilepsy, unspecified, not intractable, without status epilepticus; I25.10 Atherosclerotic heart disease of native coronary artery without angina pectoris; I10 Essential (primary) hypertension; J44.9 Chronic obstructive pulmonary disease, unspecified; M54.42 Lumbago with sciatica, left side; G89.29 Other chronic pain; Z86.718 Personal history of other venous thrombosis and embolism; Z79.01 Long term (current) use of anticoagulants; Z86.73 Personal history of transient ischemic attack (TIA), and cerebral infarction without residual deficits
CPT/HCPCS: 36415; 80053; 81003; 85027; 86593; 86780; 87635

== ENCOUNTER 2023-07-05 20:33 | Inpatient (IN) | payer OTHER ==
[2023-07-05 21:09] VITALS: BMI 25.7
[2023-07-05] MEDS ORDERED: ONDANSETRON *ODT* 4 MG TABLET SL PRN (21:34)
[2023-07-05] MEDS ORDERED: NICOTINE POLACRILEX 2 MG GUM BUC PRN (21:34)
[2023-07-05] MEDS ORDERED: POLYETHYLENE GLYCOL (HEALTHYLAX) 3350 17 GM PACKET PO PRN (21:34)
[2023-07-05] MEDS ORDERED: BENZONATATE 200 MG CAPSULE PO PRN (21:34)
[2023-07-05] MEDS ORDERED: IBUPROFEN 400 MG TABLET (FP) PO PRN (21:34)
[2023-07-05] MEDS ORDERED: MAGNESIUM HYDROX 2400MG/30ML ORAL SUSPENSION 30 ML CUP PO PRN (21:34)
[2023-07-05] MEDS ORDERED: NALOXONE HCL 0.4 MG/ML VIAL IM PRN (21:34)
[2023-07-05] MEDS ORDERED: IBUPROFEN 600 MG TABLET (FP) PO PRN (21:34)
[2023-07-05] MEDS ORDERED: BISMUTH SUBSALICYLATE 524 MG/30 ML PO PRN (21:34)
[2023-07-05] MEDS ORDERED: DICYCLOMINE HCL 10 MG CAPSULE PO PRN (21:34)
[2023-07-05] MEDS ORDERED: chlordiazePOXIDE HCL 25 MG CAPSULE PO PRN (21:34)
[2023-07-05] MEDS ORDERED: MAG HYDROX/AL HYDROX/SIMETH 30 ML UNIT-DOSE CUP PO PRN (21:34)
[2023-07-05] MEDS ORDERED: ACETAMINOPHEN 325 MG TABLET (FP) PO PRN (21:34)
[2023-07-05] MEDS ORDERED: LOPERAMIDE HCL 2 MG CAPSULE PO PRN (21:34)
[2023-07-05] MEDS ORDERED: chlordiazePOXIDE HCL 25 MG CAPSULE PO ONE (21:34)
[2023-07-05] MEDS ORDERED: guaiFENesin 600 MG TABLET.ER (FP) PO PRN (21:34)
[2023-07-05] MEDS ORDERED: BENZOCAINE/MENTHOL (CHLORASEPTIC ) LOZENGE MM PRN (21:34)
[2023-07-05] MEDS ORDERED: NALOXONE HCL (KLOXXADO) 8 MG SPRAY NS PRN (21:34)
[2023-07-05] MEDS ORDERED: ALBUTEROL SO4 2.5/IPRATROPIUM 0.5 INH SOL 3 ML VIAL.NEB. NEB PRN (21:40)
[2023-07-05] MEDS ORDERED: chlordiazePOXIDE HCL 25 MG CAPSULE ONE (21:48)
[2023-07-05] MEDS ORDERED: LISINOPRIL 10 MG TABLET ONE (21:48)
[2023-07-05] MEDS: LISINOPRIL 20 MG TABLET PO SCH (21:52)
[2023-07-05] MEDS: MELATONIN 5 MG TABLETS PO SCH (22:27)
[2023-07-05] MEDS: GABAPENTIN 300 MG CAPSULE PO SCH (22:27)
[2023-07-05] MEDS: DIVALPROEX SODIUM 500 MG TABLET E.C. PO SCH (22:27)
[2023-07-05] MEDS: THIAMINE HCL 100 MG TABLET (FP) PO SCH (22:27)
[2023-07-05] MEDS: chlordiazePOXIDE HCL 25 MG CAPSULE PO SCH (23:13)
[2023-07-06] MEDS: chlordiazePOXIDE HCL 25 MG CAPSULE PO SCH ×4 (05:16→22:18)
[2023-07-06] MEDS: GABAPENTIN 300 MG CAPSULE PO SCH ×3 (05:17→22:17)
[2023-07-06 10:27] LABS: HEMOGLOBIN 12.6 GM/dL (11.7-16.9); MCH 29.4 pg (25.7-33.7); MEAN CELL VOLUME 86.5 fl (80-96); MEAN PLT VOLUME 9.8 fl (7.5-11.1); PLATELET COUNT 126 10^3/uL (134-434); RBC 4.28 M/mm3 (4.00-5.60); RDW 15.7 % (11.9-15.9)
[2023-07-06] MEDS: DIVALPROEX SODIUM 500 MG TABLET E.C. PO SCH ×2 (10:27→22:18)
[2023-07-06] MEDS: ASPIRIN 81 MG CHEWABLE TABLETS PO SCH (10:27)
[2023-07-06] MEDS: PRENATAL VITAMINS W/ FOLIC ACID TABLET (FP) PO SCH (10:28)
[2023-07-06] MEDS: NICOTINE 14 MG/24 HOURS TOPICAL PATCH TD SCH (10:28)
[2023-07-06] MEDS: cloNIDine HCL 0.1 MG TABLET PO PRN (10:28)
[2023-07-06] MEDS: LISINOPRIL 20 MG TABLET PO SCH (10:28)
[2023-07-06 10:39] LABS: POTASSIUM 3.6 mmol/L (3.5-5.1)
[2023-07-06 10:40] LABS: CALCIUM 8.1 mg/dL (8.5-10.1)
[2023-07-06 10:41] LABS: ALBUMIN 2.9 g/dl (3.4-5.0); BLOOD UREA NITROGEN 22.2 mg/dL (7-18)
[2023-07-06 10:44] LABS: CREATININE 1.5 mg/dL (0.55-1.3)
[2023-07-06 10:45] LABS: TOT PROT 6.4 g/dl (6.4-8.2)
[2023-07-06 10:46] LABS: BILIRUBIN,TOTAL 0.1 mg/dL (0.2-1)
[2023-07-06] MEDS: THIAMINE HCL 100 MG TABLET (FP) PO SCH (22:17)
[2023-07-06] MEDS: ATORVASTATIN CA 80 MG TABLET (FP) PO SCH (22:18)
[2023-07-06] MEDS: MELATONIN 5 MG TABLETS PO SCH (22:19)
[2023-07-07] MEDS: chlordiazePOXIDE HCL 25 MG CAPSULE PO SCH ×4 (05:10→22:10)
[2023-07-07] MEDS: GABAPENTIN 300 MG CAPSULE PO SCH ×3 (05:10→22:10)
[2023-07-07] MEDS ORDERED: PENICILLIN G BENZATHINE 2,400,000 UNIT/4 ML PFS IM ONE (09:02)
[2023-07-07 09:34] LABS: POTASSIUM 3.7 mmol/L (3.5-5.1)
[2023-07-07 09:49] LABS: BLOOD UREA NITROGEN 21.1 mg/dL (7-18); CALCIUM 8.7 mg/dL (8.5-10.1)
[2023-07-07 09:50] LABS: CREATININE 1.4 mg/dL (0.55-1.3)
[2023-07-07] MEDS: METHOCARBAMOL 500 MG TABLET PO PRN (10:01)
[2023-07-07] MEDS: ASPIRIN 81 MG CHEWABLE TABLETS PO SCH (10:01)
[2023-07-07] MEDS: LISINOPRIL 20 MG TABLET PO SCH (10:01)
[2023-07-07] MEDS: PRENATAL VITAMINS W/ FOLIC ACID TABLET (FP) PO SCH (10:01)
[2023-07-07] MEDS: cloNIDine HCL 0.1 MG TABLET PO PRN (10:01)
[2023-07-07] MEDS: DIVALPROEX SODIUM 500 MG TABLET E.C. PO SCH ×2 (10:01→22:10)
[2023-07-07] MEDS: NICOTINE 14 MG/24 HOURS TOPICAL PATCH TD SCH (10:02)
[2023-07-07] MEDS ORDERED: LISINOPRIL 5 MG TABLET PO ONE (21:27)
[2023-07-07] MEDS: MIRTAZAPINE 15 MG TABLET (FP) PO SCH (22:10)
[2023-07-07] MEDS: ATORVASTATIN CA 80 MG TABLET (FP) PO SCH (22:10)
[2023-07-07] MEDS: THIAMINE HCL 100 MG TABLET (FP) PO SCH (22:10)
[2023-07-07] MEDS: MELATONIN 5 MG TABLETS PO SCH (22:13)
[2023-07-08] MEDS ORDERED: chlordiazePOXIDE HCL 10 MG CAPSULE PO PRN
[2023-07-08] MEDS: chlordiazePOXIDE HCL 10 MG CAPSULE PO SCH ×4 (05:47→23:06)
[2023-07-08] MEDS: GABAPENTIN 300 MG CAPSULE PO SCH ×3 (05:47→23:06)
[2023-07-08] MEDS: cloNIDine HCL 0.1 MG TABLET PO PRN ×3 (06:31→22:47)
[2023-07-08] MEDS: LISINOPRIL 20 MG TABLET PO SCH (10:10)
[2023-07-08] MEDS: PRENATAL VITAMINS W/ FOLIC ACID TABLET (FP) PO SCH (10:10)
[2023-07-08] MEDS: DIVALPROEX SODIUM 500 MG TABLET E.C. PO SCH ×2 (10:10→22:47)
[2023-07-08] MEDS: hydrOXYzine PAMOATE 25 MG CAPSULE (FP) PO PRN (10:10)
[2023-07-08] MEDS: METHOCARBAMOL 500 MG TABLET PO PRN (10:10)
[2023-07-08] MEDS: NICOTINE 14 MG/24 HOURS TOPICAL PATCH TD SCH (10:11)
[2023-07-08] MEDS: ASPIRIN 81 MG CHEWABLE TABLETS PO SCH (10:11)
[2023-07-08] MEDS: ATORVASTATIN CA 80 MG TABLET (FP) PO SCH (22:47)
[2023-07-08] MEDS: THIAMINE HCL 100 MG TABLET (FP) PO SCH (22:47)
[2023-07-08] MEDS: MELATONIN 5 MG TABLETS PO SCH (22:48)
[2023-07-08] MEDS: MIRTAZAPINE 15 MG TABLET (FP) PO SCH (23:06)
[2023-07-09] MEDS: chlordiazePOXIDE HCL 10 MG CAPSULE PO SCH ×2 (05:30→17:53)
[2023-07-09] MEDS: GABAPENTIN 300 MG CAPSULE PO SCH ×3 (05:30→22:06)
[2023-07-09] MEDS: DIVALPROEX SODIUM 500 MG TABLET E.C. PO SCH ×2 (10:14→22:06)
[2023-07-09] MEDS: LISINOPRIL 20 MG TABLET PO SCH (10:14)
[2023-07-09] MEDS: ASPIRIN 81 MG CHEWABLE TABLETS PO SCH (10:14)
[2023-07-09] MEDS: PRENATAL VITAMINS W/ FOLIC ACID TABLET (FP) PO SCH (10:14)
[2023-07-09] MEDS: NICOTINE 14 MG/24 HOURS TOPICAL PATCH TD SCH (10:14)
[2023-07-09] MEDS: hydrOXYzine PAMOATE 25 MG CAPSULE (FP) PO PRN (10:15)
[2023-07-09] MEDS: cloNIDine HCL 0.1 MG TABLET PO PRN ×2 (13:17→22:06)
[2023-07-09 17:20] VITALS: RESP 18
[2023-07-09] MEDS: THIAMINE HCL 100 MG TABLET (FP) PO SCH (22:06)
[2023-07-09] MEDS: ATORVASTATIN CA 80 MG TABLET (FP) PO SCH (22:06)
[2023-07-09] MEDS: MIRTAZAPINE 15 MG TABLET (FP) PO SCH (22:55)
[2023-07-09] MEDS: MELATONIN 5 MG TABLETS PO SCH (22:55)
[2023-07-10] MEDS ORDERED: chlordiazePOXIDE HCL 10 MG CAPSULE PO ONE (05:00)
[2023-07-10] MEDS: GABAPENTIN 300 MG CAPSULE PO SCH (05:16)
[2023-07-10 09:10] VITALS: BP 140/86; PULSE 66; TEMP 98.2
[2023-07-10] MEDS: DIVALPROEX SODIUM 500 MG TABLET E.C. PO SCH (09:30)
[2023-07-10] MEDS: ASPIRIN 81 MG CHEWABLE TABLETS PO SCH (09:30)
[2023-07-10] MEDS: hydrOXYzine PAMOATE 25 MG CAPSULE (FP) PO PRN (09:30)
[2023-07-10] MEDS: PRENATAL VITAMINS W/ FOLIC ACID TABLET (FP) PO SCH (09:30)
[2023-07-10] MEDS: NICOTINE 14 MG/24 HOURS TOPICAL PATCH TD SCH (09:30)
[2023-07-10] MEDS: LISINOPRIL 20 MG TABLET PO SCH (09:30)
== END 2023-07-10 09:40 | disposition other institution (70) | DRG 773 ==
LOC: YASAS 20:33 → Y6N 21:51
PROVIDERS: ADMIT Allergy & Immunology; ATTEND Surgery
PROC: HZ2ZZZZ Detoxification Services for Substance Abuse Treatment (ICD-10-PCS; principal; 2023-07-05)
DX: F10.230 Alcohol dependence with withdrawal, uncomplicated (principal); F11.20 Opioid dependence, uncomplicated; F14.20 Cocaine dependence, uncomplicated; F12.20 Cannabis dependence, uncomplicated; F17.210 Nicotine dependence, cigarettes, uncomplicated; F41.8 Other specified anxiety disorders; E78.5 Hyperlipidemia, unspecified; I25.118 Atherosclerotic heart disease of native coronary artery with other forms of angina pectoris; J44.9 Chronic obstructive pulmonary disease, unspecified; R76.8 Other specified abnormal immunological findings in serum; Z86.19 Personal history of other infectious and parasitic diseases; Z86.718 Personal history of other venous thrombosis and embolism; Z79.01 Long term (current) use of anticoagulants; Z86.711 Personal history of pulmonary embolism; Z86.73 Personal history of transient ischemic attack (TIA), and cerebral infarction without residual deficits
CPT/HCPCS: 36415; 80048; 80053; 83036; 85027; 86593; 86780; 87635; 94640

== ENCOUNTER 2025-05-03 14:26 | Inpatient (IN) | payer OTHER ==
[2025-05-03] MEDS ORDERED: BENZONATATE 200 MG CAPSULE PO PRN (16:00)
[2025-05-03] MEDS ORDERED: NALOXONE HCL 0.4 MG/ML VIAL IVPUSH PRN (16:00)
[2025-05-03] MEDS ORDERED: NALOXONE (NARCAN) HCL 4 MG/0.1 ML SPRAY NS PRN (16:00)
[2025-05-03] MEDS ORDERED: BENZOCAINE/MENTHOL (CHLORASEPTIC ) LOZENGE MM PRN (16:00)
[2025-05-03] MEDS ORDERED: MAG HYDROX/AL HYDROX/SIMETH 30 ML UNIT-DOSE CUP PO PRN (16:00)
[2025-05-03] MEDS ORDERED: POLYETHYLENE GLYCOL (HEALTHYLAX) 3350 17 GM PACKET PO PRN (16:00)
[2025-05-03] MEDS ORDERED: guaiFENesin 600 MG TABLET.ER (FP) PO PRN (16:00)
[2025-05-03] MEDS ORDERED: NICOTINE POLACRILEX 4 MG LOZENGE BC PRN (16:00)
[2025-05-03] MEDS ORDERED: MAGNESIUM HYDROX 2400MG/30ML ORAL SUSPENSION 30 ML CUP PO PRN (16:00)
[2025-05-03] MEDS ORDERED: IBUPROFEN 600 MG TABLET (FP) PO PRN (16:00)
[2025-05-03] MEDS ORDERED: METHOCARBAMOL 500 MG TABLET PO PRN (16:00)
[2025-05-03] MEDS ORDERED: IBUPROFEN 400 MG TABLET (FP) PO PRN (16:00)
[2025-05-03] MEDS: ATORVASTATIN CA 80 MG TABLET (FP) PO SCH (21:04)
[2025-05-03] MEDS: MIRTAZAPINE 15 MG TABLET (FP) PO SCH (21:04)
[2025-05-03] MEDS: THIAMINE 100 MG TABLET PO SCH (21:04)
[2025-05-03] MEDS: APIXABAN 5 MG TABLET PO SCH (21:04)
[2025-05-03] MEDS: MELATONIN 5 MG TABLETS PO SCH (21:05)
[2025-05-04] MEDS: LOPERAMIDE HCL 2 MG CAPSULE PO PRN (06:21)
[2025-05-04] MEDS: LISINOPRIL 20 MG TABLET PO SCH ×2 (09:08→21:36)
[2025-05-04] MEDS: ASPIRIN 81 MG CHEWABLE TABLETS PO SCH (09:08)
[2025-05-04] MEDS: PRENATAL VITAMINS W/ FOLIC ACID TABLET (FP) PO SCH (09:08)
[2025-05-04] MEDS: HYDROCHLOROTHIAZIDE 25 MG TABLET (FP) PO SCH (09:08)
[2025-05-04] MEDS: NICOTINE 14 MG/24 HOURS TOPICAL PATCH TD SCH (09:09)
[2025-05-04] MEDS ORDERED: ALBUTEROL SO4 HFA INHALER IH PRN (11:42)
[2025-05-04] MEDS: ACETAMINOPHEN 325 MG TABLET (FP) PO PRN (17:58)
[2025-05-04] MEDS: BACLOFEN 10 MG TABLET (FP) PO SCH (21:33)
[2025-05-04] MEDS ORDERED: LISINOPRIL 20 MG TABLET PO SCH (22:00)
[2025-05-04] MEDS: NICOTINE POLACRILEX 4 MG GUM BUC PRN (22:21)
[2025-05-06] MEDS: MAGNESIUM OXIDE 400 MG TABLET (FP) PO SCH (09:45)
[2025-05-09] MEDS: HYDROCHLOROTHIAZIDE 25 MG TABLET (FP) PO SCH (06:25)
[2025-05-09] MEDS ORDERED: NICOTINE 14 MG/24 HOURS TOPICAL PATCH TD PRN (11:17)
[2025-05-10] MEDS: HYDROCHLOROTHIAZIDE 25 MG TABLET (FP) PO SCH (09:04)
[2025-05-11] MEDS: amLODIPine BESYLATE 5 MG TABLET (FP) PO SCH (09:45)
[2025-05-12] MEDS ORDERED: amLODIPine BESYLATE 5 MG TABLET (FP) PO SCH (10:00)
[2025-05-12] MEDS: AMLODIPINE BESYLATE 5 MG, AMLODIPINE BESYLATE 2.5 MG PO SCH (10:44)
[2025-05-15] MEDS: BACITRACIN 0.9 GM PACKET TP SCH (12:30)
[2025-05-16] MEDS: hydrOXYzine PAMOATE 25 MG CAPSULE (FP) PO PRN (21:06)
[2025-05-17 06:36] VITALS: RESP 20; TEMP 97.5
[2025-05-17 08:58] VITALS: BP 147/87; PULSE 72
== END 2025-05-17 09:12 | disposition home or self-care (01) | DRG 772 ==
LOC: YASAS 14:26 → Y3E 14:27
PROVIDERS: ADMIT Psychiatry & Neurology Pain Medicine; ATTEND Psychiatry & Neurology Pain Medicine
PROC: HZ42ZZZ Group Counseling for Substance Abuse Treatment, Cognitive-Behavioral (ICD-10-PCS; principal; 2025-05-03)
DX: F14.20 Cocaine dependence, uncomplicated (principal); F10.20 Alcohol dependence, uncomplicated; F12.20 Cannabis dependence, uncomplicated; F43.10 Post-traumatic stress disorder, unspecified; F32.A Depression, unspecified; F41.9 Anxiety disorder, unspecified; I25.10 Atherosclerotic heart disease of native coronary artery without angina pectoris; I10 Essential (primary) hypertension; J44.9 Chronic obstructive pulmonary disease, unspecified; M54.50 Low back pain, unspecified; G89.29 Other chronic pain; Z86.73 Personal history of transient ischemic attack (TIA), and cerebral infarction without residual deficits
CPT/HCPCS: J0475